=== PATIENT | male | born 1965 | race Caucasian/White ===

== ENCOUNTER 2022-12-24 07:35 | Day surgery (SDC) | payer BC ==
[~2022-12-24] VITALS: Ht 188 cm; Wt 113.6 kg
[~2022-12-24 07:35] MED LIST: ALLER-TEC10 MG PO; ATORVASTATIN CA40 MG PO; FLUVOXAMINE MA100 MG PO; HYDROCHLOROTHIA25 MG PO; JARDIANCE10 MG PO; METFORMIN HCL1000 MG PO; TELMISARTAN80 MG PO; TRESIBA FL100 UNIT/1 SUB-Q
[2022-12-24 07:51] VITALS: BP 146/78
--- NOTE | 2022-12-24 09:07 | NUR ---
12/24/22 0907 Pamela Capps PT TO PACU ALERT AND AWAKE ASKING ABOUT PROCEDSONNYE
[2022-12-24 09:31] VITALS: BP 138/79
--- NOTE | 2022-12-25 12:56 | PATH ---
[facility] [address] [place], [place] [address] Signed SPECIMEN(S): A COLON BIOPSY, ILEOCECAL VALVE SPECIMEN SOURCE: A. COLON BIOPSY, ILEOCECAL VALVE CLINICAL HISTORY: Pre: 2021 hx serrated adenoma. Post: Hyperplastic-appearing tissue, ileocecal valve. FINAL PATHOLOGIC DIAGNOSIS: Ileocecal valve, biopsy: - Benign small bowel-type mucosa with focal fragments of benign colonic mucosa and focal active inflammation. - Negative for epithelial dysplasia or malignancy. JVR:sm:C2NR MICROSCOPIC EXAMINATION: Histologic sections of all submitted blocks are examined by light microscopy. These findings, together with the gross examination, support the pathologic diagnosis. GROSS DESCRIPTION: The specimen, labeled and designated "[place], ileocecal valve biopsy," is received in formalin and consists of eight rodriguez soft tissue fragments, ranging from 0.1-0.4 cm. Entirely submitted in (A1). KA (under the direct supervision of a pathologist) The Gross Description was prepared using a voice recognition system. The report was reviewed for accuracy; however, sound-alike word errors, addition and/or deletions may occur. If there is any question about this report, please contact Client Services. PERFORMING LABORATORY: Technical component was performed by [facility], [address] [place] [id number] (CLIA# [id number]). Professional interpretation was performed by [facility], [address] [place] [id number] (CLIA#: [id number]). Diagnostician: Kun Rendon MD Pathologist Electronically Signed 12/25/2022 PATIENT NAME: LUZ MERCEDES PATHOLOGY DATE OF : 61 REPORT #: [id number] PHYSICIAN: [facility] PCP: JENNIFER ENCINAS MD REPORT IS CONFIDENTIAL AND NOT TO BE RELEASED WITHOUT AUTHORIZATION [address] [address] Signed Copies: ~ PATIENT NAME: LUZ MERCEDES PATHOLOGY DATE OF : 61 REPORT #: [id number] PHYSICIAN: [facility] PCP: JENNIFER ENCINAS MD REPORT IS CONFIDENTIAL AND NOT TO BE RELEASED WITHOUT AUTHORIZATION
--- NOTE | 2022-12-27 18:00 | OR ---
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 POSTOPERATIVE DIAGNOSIS: Hypertrophic mucosa of the ileocecal valve (multiply biopsied). PROCEDURE: Total colonoscopy to cecum with multiple morcellation excisions of ileocecal valve area. ANESTHESIA: Intravenous sedation; fentanyl 100 mcg and Versed 5 mg. INDICATION: This 57-year-old white man is a patient of Jennifer Encinas MD of [place], [place]. He underwent colonoscopy a year ago where he was found to have a serrated adenoma in the ileocecal valve area. He is here for short-term surveillance based on the histology of his findings. He has no symptoms of bleeding, diarrhea or constipation. He understands the risk of bleeding, infection, and perforation related to colonoscopy and wished to proceed. FINDINGS: The prep was good. Complete colonoscopy was undertaken to the cecum. Good visualization of the ileocecal valve and the appendiceal orifice was noted. There was slight hypertrophic mucosal change of the ileocecal valve. On that basis, multiple biopsies were taken to ablate the area. There was no distinct actual polyp that I could tell and narrow band imaging provided no additional information. The remaining colon was otherwise normal. DESCRIPTION OF PROCEDURE: The patient was brought to the endoscopy suite and placed in the lateral decubitus position, given intravenous sedation to the point of slurred speech and nystagmus. Digital rectal examination was normal. An Olympus video colonoscope was passed in the rectum and manipulated throughout the colon ultimately intubating the cecum itself. The ileocecal valve and appendiceal orifice were carefully examined. Appendiceal orifice was normal. The ileocecal valve Electronically Signed By: SON HOFFMAN MD 12/27/22 [facility] PATIENT NAME: LUZ MERCEDES OPERATIVE REPORT DATE OF : 61 REPORT #: [id number] PHYSICIAN: SON HOFFMAN MD PCP: JENNIFER ENCINAS MD REPORT IS CONFIDENTIAL AND NOT TO BE RELEASED WITHOUT AUTHORIZATION [facility] [address] [place], [place] [address] Signed had a hypertrophic appearing mucosa not strictly adenomatous in appearance, but definitely at least hyperplastic. Multiple biopsies were taken of this area to ascertain if residual serrated adenoma was present. The scope was then withdrawn and examination throughout showed no other abnormality. Retroflexed view was normal as well. The scope was removed and the patient was taken to the recovery room in good condition. CONCLUDING DIAGNOSIS: Questionable adenomatous change of ileocecal valve versus hyperplasia alone. PLAN: We will check pathology. Depending on those results, recommendations will follow. MD ALEC Hoff/BARBRAL /[id number] cc: Jennifer Encinas MD, Copies: ~ Electronically Signed By: SON HOFFMAN MD 12/27/22 1800 PATIENT NAME: LUZ MERCEDES OPERATIVE REPORT DATE OF : 61 REPORT #: [id number] PHYSICIAN: SON HOFFMAN MD PCP: JENNIFER ENCINAS MD REPORT IS CONFIDENTIAL AND NOT TO BE RELEASED WITHOUT AUTHORIZATION
== END 2022-12-24 09:35 | disposition home or self-care (01) ==
LOC: OPS 07:35 → DS 07:35 → OPS 08:30 → DS 08:30 → OPS 09:35
PROVIDERS: ATTEND Surgery
PROC: 0DBC8ZZ Excision of Ileocecal Valve, Via Natural or Artificial Opening Endoscopic (ICD-10-PCS; principal; 2022-12-24 08:30)
DX: Z12.11 Encounter for screening for malignant neoplasm of colon (principal); K52.9 Noninfective gastroenteritis and colitis, unspecified; I10 Essential (primary) hypertension; E11.9 Type 2 diabetes mellitus without complications
CPT/HCPCS: 99153; G0500; J2250; J3010; J7121